=== PATIENT | female | born 1995 | race Caucasian/White ===

== ENCOUNTER → 2018-03-05 | Outpatient (CLI) | payer OTHER | LOC: SUN.DIA 10:57 | DX: O24.419 Gestational diabetes mellitus in pregnancy, unspecified control (principal); Z3A.29 29 weeks gestation of pregnancy; Z71.3 Dietary counseling and surveillance | CPT/HCPCS: G0108 ==

== ENCOUNTER → 2018-03-25 | Outpatient (CLI) | payer OTHER | LOC: SUN.DIA 15:12 | DX: O24.419 Gestational diabetes mellitus in pregnancy, unspecified control (principal); Z3A.32 32 weeks gestation of pregnancy; Z71.3 Dietary counseling and surveillance | CPT/HCPCS: G0108 ==

== ENCOUNTER → 2018-04-14 | Outpatient (CLI) | payer OTHER | LOC: SUN.DIA 14:18 | DX: O24.419 Gestational diabetes mellitus in pregnancy, unspecified control (principal); Z3A.35 35 weeks gestation of pregnancy; Z71.3 Dietary counseling and surveillance | CPT/HCPCS: G0108 ==

== ENCOUNTER 2018-05-17 04:33 | Outpatient (CLI) | payer OTHER ==
[~2018-05-17] VITALS: Ht 162.6 cm; Wt 73.2 kg
[2018-05-17 04:45] VITALS: BP 113/80; PULSE 80; TEMP 98.5
[2018-05-17] MEDS ORDERED: PRENATAL1 TA7 PO (05:18)
[2018-05-17] MEDS ORDERED: ZOVIRAX400 MG PO (05:20)
[2018-05-17] MEDS ORDERED: FERROUS SU325 MG/TAB PO (05:22)
[2018-05-17 06:00] VITALS: BP 115/69; PULSE 91
[2018-05-17 07:00] VITALS: BP 117/75; PULSE 93
== END 2018-05-17 07:15 | disposition home or self-care (01) ==
LOC: LDRO 04:33
DX: O62.9 Abnormality of forces of labor, unspecified (principal); Z3A.39 39 weeks gestation of pregnancy

== ENCOUNTER 2018-05-18 19:20 | Outpatient (CLI) | payer OTHER ==
[~2018-05-18] VITALS: Ht 157.5 cm; Wt 73.6 kg
[~2018-05-18 19:20] MED LIST: FERROUS SU325 MG/TAB PO; PRENATAL1 TA7 PO; ZOVIRAX400 MG PO
[2018-05-18 19:50] VITALS: TEMP 98.3
[2018-05-18 20:50] VITALS: BP 125/86; PULSE 86
== END 2018-05-18 20:50 | disposition home or self-care (01) ==
LOC: LDRO 19:20
DX: O62.9 Abnormality of forces of labor, unspecified (principal); Z3A.39 39 weeks gestation of pregnancy

== ENCOUNTER 2018-05-19 06:47 | Inpatient (IN) | payer OTHER ==
[~2018-05-19] VITALS: Ht 162.6 cm; Wt 73.2 kg
[2018-05-19 19:30] VITALS: BP 129/82; PULSE 110; TEMP 98
[2018-05-19 20:00] VITALS: BP 123/81; PULSE 98
[2018-05-19 20:22] LABS: BASO % 0.3 % (0.0-2.0); EOS # 0.2 (0.0-0.7); EOS % 1.6 % (0-4.0); GRAN # 9.3 (1.4-6.5); GRAN % 76.7 % (42.2-75.2); HEMATOCRIT 40.6 % (37.0-47.0); HEMOGLOBIN 12.9 g/dl (12.5-16.0); LYMPH # 1.6 (1.2-3.4); LYMPH % 13.5 % (20.0-51.0); MEAN CELL VOLUME 83 fl (80.0-100.0); MEAN CORPUSCULAR HEMOGLOBIN 26 pg (27.0-31.0); MEAN CORPUSCULAR HGB CONC 32 g/dl (33.0-37.0); MEAN PLATELET VOLUME 10.9 fl (7.4-10.4); MONO # 0.9 (0.1-0.6); MONO % 7.5 % (1.7-9.3); PLATELET COUNT 198 K/mm3 (130-400); REDCELL DISTRIBUTION WIDTH-CV 18.4 % (11.5-14.5)
[2018-05-19 20:42] VITALS: BP 119/80; PULSE 125
[2018-05-20] VITALS (41 sets, daily range): BP systolic 102–131; BP diastolic 63–89; PULSE 78–130; TEMP 97.4–98.4
[2018-05-20 02:08] LABS: COLLECTION METHOD CLEAN CATCH
[2018-05-20 02:15] LABS: MUCOUS Present /lpf; PH 5 (5-8); SQUAMOUS EPITHELIAL 0-2 /hpf; URINE APPEARANCE Clear; URINE BACTERIA None Seen /hpf; URINE BILIRUBIN Negative (NEGATIVE); URINE BLOOD Negative (NEGATIVE); URINE COLOR Yellow; URINE GLUCOSE Negative (NEGATIVE); URINE KETONE 1+ (NEGATIVE); URINE LEUKOCYTE ESTERASE Negative (NEGATIVE); URINE NITRATE Negative (NEGATIVE); URINE PROTEIN(semi-quant) 1+ (NEGATIVE); URINE RBC None Seen /hpf; URINE UROBILINOGEN Negative (NEGATIVE)
[2018-05-20 02:52] LABS: TRICYCLIC ANTIDEPRESS URINE NEGATIVE
[2018-05-21 06:45] VITALS: BP 112/74; PULSE 100; TEMP 97.9
[2018-05-21 17:20] VITALS: BP 119/73; PULSE 80; TEMP 97.3
[2018-05-21 20:30] VITALS: BP 104/57; PULSE 86; TEMP 99.1
[2018-05-22 07:10] VITALS: BP 121/82; PULSE 83; TEMP 97.9
[2018-05-22] MEDS ORDERED: IBU800 M1 PO (09:11)
== END 2018-05-22 10:10 | disposition home or self-care (01) | DRG 774 ==
LOC: LDR 06:47 → OB 05-20 15:30
PROVIDERS: Student in an Organized Health Care Education/Training Program
PROC: 3E0P7VZ Introduction of Hormone into Female Reproductive, Via Natural or Artificial Opening (ICD-10-PCS; 2018-05-19)
PROC: 10E0XZZ Delivery of Products of Conception, External Approach (ICD-10-PCS; principal; 2018-05-20)
PROC: 0KQM0ZZ Repair Perineum Muscle, Open Approach (ICD-10-PCS; 2018-05-20)
PROC: 10907ZC Drainage of Amniotic Fluid, Therapeutic from Products of Conception, Via Natural or Artificial Opening (ICD-10-PCS; 2018-05-20)
PROC: 3E033VJ Introduction of Other Hormone into Peripheral Vein, Percutaneous Approach (ICD-10-PCS; 2018-05-20)
DX: O24.420 Gestational diabetes mellitus in childbirth, diet controlled (principal); O98.32 Other infections with a predominantly sexual mode of transmission complicating childbirth; O99.323 Drug use complicating pregnancy, third trimester; Z3A.39 39 weeks gestation of pregnancy; Z37.0 Single live birth; O70.1 Second degree perineal laceration during delivery; J45.909 Unspecified asthma, uncomplicated; F12.90 Cannabis use, unspecified, uncomplicated; A60.09 Herpesviral infection of other urogenital tract; O90.81 Anemia of the puerperium
CPT/HCPCS: J2590; J2795; J7120

== ENCOUNTER → 2018-05-26 | Outpatient (CLI) | payer OTHER ==
[~2018-05-26] MED LIST changes: +IBU800 M1 PO
== END ==
LOC: LAC 11:14
DX: Z39.1 Encounter for care and examination of lactating mother (principal); Z71.89 Other specified counseling

== ENCOUNTER 2019-01-19 14:15 | Outpatient (RCR) | payer SELFPAY | END 2019-02-17 16:02 | disposition home or self-care (01) | LOC: WSOT 14:15 | DX: Z98.890 Other specified postprocedural states (principal); S52.502D Unspecified fracture of the lower end of left radius, subsequent encounter for closed fracture with routine healing ==

== ENCOUNTER 2020-06-13 21:46 | Inpatient (IN) | payer OTHER ==
[~2020-06-13] VITALS: Ht 162.6 cm; Wt 72.3 kg
--- NOTE | 2020-06-13 21:40 | NUR ---
214- Pt. ambulatory with by her side to unit. Orientated to room and changed into gown. Pt. reports GFM, no LOF, a little blood when wiping, but informed she was check in the office today around 5pm. 2144- EFM and TOCO on and tracing. RN remains at bedside. Vitals taken, assessment complete. 2157- SVE, /2. Discussed with patient watching contractions and FHT for an hour and then rechecking. She verbalized understanding with no further questions. Call light within reach.
[2020-06-13 22:00] VITALS: BP 121/73; PULSE 107; TEMP 97.8
[2020-06-13] MEDS ORDERED: ZOVIRAX 200MG200 MG PO (22:24)
[2020-06-13 23:00] VITALS: BP 115/77; PULSE 106
[2020-06-13 23:30] VITALS: BP 116/79; PULSE 97
[2020-06-14] VITALS (46 sets, daily range): BP systolic 101–146; BP diastolic 53–82; PULSE 81–164; TEMP 97.2–99.1
--- NOTE | 2020-06-14 | NUR ---
PT. REFUSED COVID-19 SWAB, STATING SHE DOES NOT WANT IT AND DOES NOT WANT SOMETHING STUCK UP HER NOSE. ADVISED HER IT GOES RIGHT INSIDE THE NARES IF THAT WOULD CHANGE HER MIND. SHE STILL REFUSED AND STATED SHE DID NOT WANT IT.
[2020-06-14 00:12] LABS: BASO % 0.3 % (0.0-2.0); EOS # 0.1 (0.0-0.7); EOS % 0.8 % (0-4.0); GRAN % 77.8 % (42.2-75.2); HEMOGLOBIN 11.3 g/dl (12.5-16.0); LYMPH # 2.1 (1.2-3.4); LYMPH % 15.2 % (20.0-51.0); MEAN CELL VOLUME 79 fl (80.0-100.0); MEAN CORPUSCULAR HEMOGLOBIN 25 pg (27.0-31.0); MEAN CORPUSCULAR HGB CONC 32 g/dl (33.0-37.0); MEAN PLATELET VOLUME 10.3 fl (7.4-10.4); MONO # 0.8 (0.1-0.6); MONO % 5.3 % (1.7-9.3); PLATELET COUNT 255 K/mm3 (130-400); RED BLOOD COUNT 4.52 M/mm3 (4.10-5.30); REDCELL DISTRIBUTION WIDTH-CV 17.4 % (11.5-14.5)
[2020-06-14 00:14] LABS: HEMATOCRIT 35.9 % (37.0-47.0)
[2020-06-14 00:25] LABS: TRICYCLIC ANTIDEPRESS URINE NEGATIVE
--- NOTE | 2020-06-14 00:31 | NUR ---
0023- RN to bedside to help patient up to sitting position for epiral placement. Maternal O2 sat on and tracing. RN remains in the room 0024- EVANGELINA Talamantes to bedside for epidural placement. Discussed procedure with patient. 0031- SS, see anesthesia record.
--- NOTE | 2020-06-14 06:30 | NUR ---
CARE OF THE PT ASSUMED AT THIS TIME. REPORT FROM LAUREEN BLUM. PT RESTING IN BED, COMFORTABLE WITH NO PAIN. FHT'S WITH MODERATE VARIABILITY. CONTRACTIONS EVERY 3-4 MINUTES.
--- NOTE | 2020-06-14 06:45 | NUR ---
DR FUNEZ CALLED HERE FOR REPORT ON PATIENT. WILL BE HERE IN 1-2 HOURS UNLESS SHE IS NEEDED EARLIER.
--- NOTE | 2020-06-14 07:00 | NUR ---
PT'S BLOOD SUGAR IS 80
--- NOTE | 2020-06-14 07:30 | NUR ---
PT REPORTS SHE IS FEELING PRESSURE. SVE 9-10/100/+1 WITH BULGING BAG OF WATER.
--- NOTE | 2020-06-14 07:45 | NUR ---
DR FUNEZ IN AT 0736, SVE 9-10/100/+1, AROM AT 0737 WITH CLEAR FLUID.
--- NOTE | 2020-06-14 08:30 | NUR ---
SVE /+2; BOYD REMOVED, PUSHING STARTED AT 0823. OBSERVED SEVERAL WHITE LESIONS JUST INSIDE THE VAGINAL WALL, ASKED DR FUNEZ TO COME LOOK SINCE PT HAS A HISTORY OF HSV. PT DENIES FEELING ANY OF THE HSV SYMPTOMS SHE IS USED TO. DR FUNEZ IN AT 0830 AND SAYS THEY ARE NOT HSV AND CAN CONTINUE PUSHING.
--- NOTE | 2020-06-14 08:46 | NUR ---
DR FUNEZ AT BEDSIDE. PT PREPPED FOR DELIVERY. OF FEMALE AT [address] FUNEZ. BABY IMMEDIATELY TO MOM'S ABDOMEN WITH VIGOROUS CRY CORD CLAMPED AND CUT. SPONTANEOUS DELIVERY OF PLACENTA AT 0846. FUNDAL MASSAGE AFTER DELIVERY OF PLACENTA AND PITOCIN STARTED AT 333ML/HR AFTER DELIVERY OF PLACENTA.
--- NOTE | 2020-06-14 08:55 | NUR ---
DR FUNEZ AT BEDSIDE FINISHING REPAIRING 2ND DEGREE PERINEAL TEAR.
--- NOTE | 2020-06-14 09:55 | NUR ---
PT RESTING IN BED. FUNDUS FIRM AND AT THE UMBILICUS WITH MINIMAL BLEEDING OBSERVED. HAS FULL FEELING IN RIGHT LEG BUT LEFT LEG IS STILL NUMB. REPORT GIVEN TO Megan VALADEZ RN AT THIS TIME.
[2020-06-15 05:03] VITALS: BP 100/63; PULSE 87; TEMP 97.7
[2020-06-15] MEDS ORDERED: IBU800 M1 PO (07:35)
[2020-06-15 07:40] VITALS: BP 103/58; PULSE 89; TEMP 98
--- NOTE | 2020-06-15 08:59 | NUR ---
Initial visit; Parents thanked for offering congratulations for the of their daughter. Net Software Engineer thanked family for choosing [facility].
--- NOTE | 2020-06-15 10:53 | NUR ---
Hotel General Manager received a consult for the patient due to positive UDS at . BRANT met with the patient and the patient's , Terrance. The patient states they have all the baby supplies she needs. They have another child in the home. BRANT addressed the positive UDS. The patient used for nausea. She does not want treatment. She will not use anymore. The baby and mother tested negative at admission. BRANT informed the patient and Terrance that a CPS will be made. CPS report # [id number]. BRANT faxed the positive results from paperchart to [facility]. BRANT collaborated the above information with the patient's nurse.
== END 2020-06-15 11:45 | disposition home or self-care (01) | DRG 807 ==
LOC: LDRO 21:46 → LDR 23:52 → OB 06-14 11:30
PROVIDERS: Obstetrics & Gynecology; ADMIT Student in an Organized Health Care Education/Training Program
PROC: 10907ZC Drainage of Amniotic Fluid, Therapeutic from Products of Conception, Via Natural or Artificial Opening (ICD-10-PCS; principal; 2020-06-14)
PROC: 10E0XZZ Delivery of Products of Conception, External Approach (ICD-10-PCS; 2020-06-14)
PROC: 0KQM0ZZ Repair Perineum Muscle, Open Approach (ICD-10-PCS; 2020-06-14)
DX: O99.02 Anemia complicating childbirth (principal); Z37.0 Single live birth; D64.9 Anemia, unspecified; O70.1 Second degree perineal laceration during delivery; Z3A.38 38 weeks gestation of pregnancy; Z86.19 Personal history of other infectious and parasitic diseases
CPT/HCPCS: J2590; J2795; J7120